=== PATIENT | female | born 1990 | race Caucasian/White ===

== ENCOUNTER 2018-04-25 17:21 | Emergency (ER) | payer OTHER, MEDICAID | END 2018-04-25 21:10 | disposition home or self-care (01) | LOC: FTE 17:21 | DX: R10.2 Pelvic and perineal pain (principal); T83.39XA Other mechanical complication of intrauterine contraceptive device, initial encounter; Y82.9 Unspecified medical devices associated with adverse incidents | CPT/HCPCS: 76830; 76856; 99284-25 ==

== ENCOUNTER 2018-07-28 16:13 | Emergency (ER) | payer OTHER ==
[2018-07-28 19:03] LABS: ADD UMIC YES; UR ASCORBIC ACID NEGATIVE (NEGATIVE); UR BACTERIA FEW /HPF (NONE SEEN); UR BILIRUBIN (Dip) NEGATIVE (NEGATIVE); UR BLOOD (Dip) NEGATIVE (NEGATIVE); UR CLARITY SLIGHTLY CLOUDY (CLEAR); UR COLOR YELLOW (YELLOW); UR GLUCOSE (Dip) NEGATIVE (NEGATIVE); UR KETONES (Dip) NEGATIVE (NEGATIVE); UR LEUKOCYTE ESTERASE (Dip) 2+ Leu/ul (NEGATIVE); UR MUCUS FEW /HPF (NONE SEEN); UR NITRITE (Dip) NEGATIVE (NEGATIVE); UR RBC 2 /HPF (0-5); UR SPECIFIC GRAVITY (Dip) 1.026 (1.003-1.030); UR SQUAMOUS EPITHELIAL CELL MODERATE /HPF (FEW); UR TOTAL PROTEIN (Dip) NEGATIVE (NEGATIVE); UR UROBILINOGEN (Dip) 1+ mg/dL (NEGATIVE); UR WBC 9 /HPF (0-5)
== END 2018-07-28 20:53 | disposition left against medical advice (07) ==
LOC: FTE 16:13
DX: O20.0 Threatened abortion (principal); Z3A.01 Less than 8 weeks gestation of pregnancy
CPT/HCPCS: 36415; 76801; 76817; 81001; 84702; 99284-25